=== PATIENT | male | born 1945 | race African-American/Black ===

== ENCOUNTER → 2017-04-01 | Outpatient (CLI) | payer MEDICARE, MEDICAID ==
[~2017-04-01] MED LIST: AMLO-324 PO; AMLO10TA80 PO; AMLO1TAB23 PO; ASPI-1159 PO; ATEN50TA PO; AZIL80TA PO; CELE400C PO; CODE118S2 PO; FLUT100D INH; LOSA100T14 PO; NITR0.4T SL
== END | disposition home or self-care (01) ==
LOC: RAD 10:14
PROVIDERS: ATTEND Podiatrist Foot & Ankle Surgery
DX: Z01.818 Encounter for other preprocedural examination (principal); M25.571 Pain in right ankle and joints of right foot
CPT/HCPCS: 73630

== ENCOUNTER 2017-04-29 11:21 | Day surgery (SDC) | payer MEDICARE, MEDICAID ==
[~2017-04-29] VITALS: Ht 176.5 cm; Wt 96.2 kg
[~2017-04-29 11:21] MED LIST changes: +AMLO-243 PO; -AMLO-324 PO
[2017-04-29] MEDS ORDERED: TRIAMCINOLONE ACETONIDE 40MG/ML 1ML VIAL ONE (12:37)
[2017-04-29] MEDS ORDERED: DEXAMETHASONE 4MG/ML 1ML VIAL ONE ×2 (12:37→14:40)
[2017-04-29] MEDS ORDERED: GENTAMICIN SULF 40MG/ML 2ML VIAL ONE (12:38)
[2017-04-29] MEDS ORDERED: BUPIVACAINE HCL/PF 0.5% (5MG/ML) 10ML ONE ×2 (12:38→13:16)
[2017-04-29] MEDS ORDERED: BACITRACIN ZINC 15GM TUBE TOP ONE (12:38)
[2017-04-29] MEDS ORDERED: LIDOCAINE HCL 1% 20ML VIAL (Pyxis) INJ ONE ×3 (12:39→14:04)
[2017-04-29] MEDS ORDERED: BACITRACIN 50,000 UNITS/VIAL ONE (12:39)
[2017-04-29] MEDS ORDERED: SODIUM CHLORIDE 0.9% 1,000 ML IV SCH (13:00)
[2017-04-29] MEDS ORDERED: MIDAZOLAM HCL 2 MG/2 ML VIAL ONE ×2 (14:02→14:25)
[2017-04-29] MEDS ORDERED: FENTANYL CITRATE/PF 50MCG/ML 2ML VIAL ONE ×2 (14:02→14:25)
[2017-04-29] MEDS ORDERED: PROPOFOL 200MG/20ML VIAL IV ONE (14:04)
[2017-04-29] MEDS ORDERED: VANCOMYCIN HCL 500 MG/VIAL ONE ×2 (14:19→14:20)
[2017-04-29] MEDS ORDERED: BUPIVACAINE HCL 0.5% (5MG/ML) 50ML ONE (14:27)
[2017-04-29] MEDS ORDERED: LABETALOL HCL 20MG/4ML CARPUJECT IV PRN (14:30)
[2017-04-29] MEDS ORDERED: ONDANSETRON HCL 4MG/2ML VIAL IV PRN (14:30)
[2017-04-29] MEDS ORDERED: MEPERIDINE HCL/PF 25MG/ML CPJ IV PRN (14:30)
[2017-04-29] MEDS ORDERED: HYDROMORPHONE HCL/PF 2MG/ML CPJ IV PRN (14:30)
[2017-04-29] MEDS ORDERED: ONDANSETRON HCL 4MG/2ML VIAL ONE (14:40)
[2017-04-29] MEDS ORDERED: SILVER SULFADIAZINE 1% CREAM 25GM TOP NR (14:45)
== END 2017-04-29 16:15 | disposition home or self-care (01) ==
LOC: OR 11:21 → EDSTATUS 13:30 → OR 16:15
PROVIDERS: ATTEND Podiatrist Foot & Ankle Surgery
DX: M21.621 Bunionette of right foot (principal); B07.8 Other viral warts; M79.89 Other specified soft tissue disorders; I25.2 Old myocardial infarction; I10 Essential (primary) hypertension; I25.10 Atherosclerotic heart disease of native coronary artery without angina pectoris; E78.4 Other hyperlipidemia; E78.00 Pure hypercholesterolemia, unspecified; Z87.891 Personal history of nicotine dependence; Z98.890 Other specified postprocedural states; Z88.0 Allergy status to penicillin; Z79.899 Other long term (current) drug therapy; Z79.82 Long term (current) use of aspirin
CPT/HCPCS: 28043; 28110; 88311; J1100; J1580; J2250; J2405; J3010; J3301; J3370; J3490; J7030; J2704

== ENCOUNTER 2017-11-09 08:56 | Emergency (ER) | payer MEDICARE, MEDICAID ==
[~2017-11-09] VITALS: Ht 175.3 cm; Wt 98.0 kg
[2017-11-09] MEDS ORDERED: ONDANSETRON HCL 4MG/2ML VIAL IV STA (10:21)
[2017-11-09] MEDS ORDERED: KETOROLAC 30MG/ML VIAL IV STA (10:21)
[2017-11-09] MEDS ORDERED: SODIUM CHLORIDE 0.9% 500 ML IV ONE (10:21)
[2017-11-09] MEDS ORDERED: MORPHINE SULFATE 4 MG/ML CPJ (NOT FOR IM USE) IV STA (10:21)
[2017-11-09] MEDS ORDERED: DEXAMETHASONE 10 MG/ML VIAL IV ONE (10:30)
[2017-11-09 11:57] LABS: BASOPHILS % 0.2 % (0.0-2.0); HEMOGLOBIN. 14.5 g/dL (14.0-18.0); LYMPHOCYTES % 38.8 % (20.0-50.0); MEAN CORPUSCULAR HEMOGLOBIN 29.3 pg (28.0-32.0); MEAN CORPUSCULAR VOLUME 84.9 fL (80.0-94.0); MEAN PLATELET VOLUME 10.2 fl (7.4-10.4); MONOCYTES % 11.8 % (2.0-8.0); NEUTROPHILS % 47.2 % (40.0-76.0); PLATELET 121 x1000/uL (130-400); RED BLOOD CELL COUNT 4.94 mill/uL (4.7-6.1); RED CELL DISTRIBUTION WIDTH 14.3 % (11.6-14.6)
[2017-11-09 11:58] LABS: CHLORIDE 110 mEq/L (98-107)
[2017-11-09 11:59] LABS: INR 1.1; PARTIAL THROMBOPLASTIN TIME 27.6 sec (23.4-31.0); PROTHROMBIN TIME 11.1 sec (9.4-11.6)
[2017-11-09 15:12] VITALS: BP 115/65
== END 2017-11-09 15:17 | disposition home or self-care (01) ==
LOC: ER 09:21
DX: M54.40 Lumbago with sciatica, unspecified side (principal); G89.29 Other chronic pain; I10 Essential (primary) hypertension; I25.10 Atherosclerotic heart disease of native coronary artery without angina pectoris; Z79.82 Long term (current) use of aspirin; Z87.891 Personal history of nicotine dependence; Z88.0 Allergy status to penicillin; Z96.649 Presence of unspecified artificial hip joint; Z98.890 Other specified postprocedural states
CPT/HCPCS: 36415; 72148; 80048; 84484; 85025; 85610; 85730; 96361; 96374; 96375; 99285; J1100; J1885; J2270; J2405; J7040

== ENCOUNTER 2018-05-05 09:46 | Emergency (ER) | payer MEDICARE, MEDICAID ==
[~2018-05-05] VITALS: Ht 180.3 cm; Wt 97.0 kg
[2018-05-05] MEDS ORDERED: HYDROCODONE/ACETAMINOPHEN 5/325MG TABLET PO ONE (10:15)
[2018-05-05 16:23] VITALS: BP 132/77
== END 2018-05-05 16:33 | disposition home or self-care (01) ==
LOC: ER 10:54
DX: M25.552 Pain in left hip (principal); W18.2XXA Fall in (into) shower or empty bathtub, initial encounter; Y93.89 Activity, other specified; Y92.091 Bathroom in other non-institutional residence as the place of occurrence of the external cause; I11.9 Hypertensive heart disease without heart failure; I25.2 Old myocardial infarction; Z79.899 Other long term (current) drug therapy; Z88.0 Allergy status to penicillin
CPT/HCPCS: 72192; 73502; 73700; 99284

== ENCOUNTER → 2020-02-01 | Outpatient (CLI) | payer MEDICARE, MEDICAID ==
[~2020-02-01] MED LIST changes: -ASPI-1159 PO; +ASPI-1497 PO; +ATOR40TA70 PO; -LOSA100T14 PO; +LOSA100T32 PO
== END | disposition home or self-care (01) ==
LOC: RAD 10:28
PROVIDERS: ATTEND Specialist
DX: M47.812 Spondylosis without myelopathy or radiculopathy, cervical region (principal); Z01.818 Encounter for other preprocedural examination
CPT/HCPCS: 71046

== ENCOUNTER 2020-02-08 05:24 | Inpatient (IN) | payer MEDICARE, MEDICAID ==
[~2020-02-08] VITALS: Ht 175.3 cm; Wt 105.7 kg
[2020-02-08] VITALS (73 sets, daily range): BP systolic 97–151; BP diastolic 49–87
[~2020-02-08 05:24] MED LIST changes: -AMLO-243 PO; -AMLO1TAB23 PO; -ATEN50TA PO; -AZIL80TA PO; -CELE400C PO; -CODE118S2 PO; -FLUT100D INH
[2020-02-08] MEDS ORDERED: LACTATED RINGERS 1,000 ML IV SCH (06:30)
[2020-02-08] MEDS ORDERED: BACITRACIN 50,000 UNITS/VIAL ONE (06:36)
[2020-02-08] MEDS ORDERED: LIDOCAINE HCL/EPINEPHRINE 1%-EPI 1:100,000 20 ML VIAL ONE (06:36)
[2020-02-08] MEDS ORDERED: THROMBIN (BOVINE) 5000 UNITS/VIAL TOP ONE (06:36)
[2020-02-08] MEDS ORDERED: FENTANYL CITRATE/PF 50MCG/ML 2ML VIAL ONE (07:03)
[2020-02-08] MEDS ORDERED: PROPOFOL 200MG/20ML VIAL IV ONE (07:03)
[2020-02-08] MEDS ORDERED: MIDAZOLAM HCL 2 MG/2 ML VIAL ONE (07:03)
[2020-02-08] MEDS ORDERED: LIDOCAINE HCL/PF 1% 10 MG/ML 5ML VIAL ONE (07:03)
[2020-02-08] MEDS ORDERED: ROCURONIUM BROMIDE 10MG/ML VIAL 5ML IV ONE ×2 (07:03→08:40)
[2020-02-08] MEDS ORDERED: ONDANSETRON HCL 4MG/2ML INJ ONE (07:04)
[2020-02-08] MEDS ORDERED: SUCCINYLCHOLINE CHLORIDE 200MG/10ML IV ONE (07:04)
[2020-02-08] MEDS ORDERED: METOCLOPRAMIDE HCL 10MG/2ML VIAL ONE (07:04)
[2020-02-08] MEDS ORDERED: CLINDAMYCIN 900 MG PREMIX 50 ML IV ONE (07:17)
[2020-02-08] MEDS: DEXT 5%/LACTATED RINGERS 1,000 ML IV SCH ×2 (09:15→17:50)
[2020-02-08] MEDS ORDERED: CLINDAMYCIN 600 MG in DEXTROSE 5% WATER 50 ML IV SCH (09:15)
[2020-02-08] MEDS ORDERED: NEOSTIGMINE METHYLSULFATE 1MG/ML 10 ML VIAL ONE (09:16)
[2020-02-08] MEDS ORDERED: GLYCOPYRROLATE 0.2 MG/ML 2ML VIAL ONE ×2 (09:16→09:17)
[2020-02-08] MEDS ORDERED: MEPERIDINE HCL/PF 25MG/ML CPJ IV PRN (09:45)
[2020-02-08] MEDS ORDERED: ONDANSETRON INJ IV PRN (10:15)
[2020-02-08] MEDS: HYDROMORPHONE HCL/PF 2MG/ML CPJ IV PRN ×2 (10:15→10:40)
[2020-02-08] MEDS ORDERED: DIPHENHYDRAMINE INJ IV PRN (10:15)
[2020-02-08] MEDS ORDERED: NALOXONE INJ IV PRN (10:15)
[2020-02-08] MEDS ORDERED: HYDROMORPHONE PCA 10MG/50ML IV PRN (10:15)
[2020-02-08] MEDS: NICARDIPINE 100 MG in SODIUM CHLORIDE 0.9% 60 ML IV PRN ×2 (10:57→17:47)
[2020-02-08] MEDS ORDERED: BENZONATATE 100MG CAPSULE PO PRN (11:45)
[2020-02-08] MEDS ORDERED: IPRATROPIUM/ALBUTEROL 0.5-3(2.5)MG/3ML NEB HHN PRN (11:45)
[2020-02-08] MEDS: MORPHINE SULFATE 4 MG/ML CPJ (NOT FOR IM USE) IV PRN ×2 (12:16→15:22)
[2020-02-08] MEDS: DEXAMETHASONE 4MG/ML 1ML VIAL IV SCH ×3 (13:52→23:34)
[2020-02-08] MEDS: CLINDAMYCIN 600MG PREMIX 50 ML IV SCH ×2 (13:54→21:16)
[2020-02-08] MEDS: NITROGLYCERIN OINT 1GM/INCH UDPKT TD SCH ×3 (15:21→23:33)
[2020-02-08] MEDS: ONDANSETRON HCL 4MG/2ML INJ IV PRN (23:34)
[2020-02-09] VITALS (105 sets, daily range): BP systolic 81–174; BP diastolic 22–101
[2020-02-09] MEDS: NITROGLYCERIN OINT 1GM/INCH UDPKT TD SCH ×6 (03:27→23:32)
[2020-02-09] MEDS: NICARDIPINE 100 MG in SODIUM CHLORIDE 0.9% 60 ML IV PRN (03:39)
[2020-02-09] MEDS: DEXAMETHASONE 4MG/ML 1ML VIAL IV SCH ×2 (06:02→11:52)
[2020-02-09] MEDS: CLINDAMYCIN 600MG PREMIX 50 ML IV SCH ×2 (06:02→14:27)
[2020-02-09] MEDS: DEXT 5%/LACTATED RINGERS 1,000 ML IV SCH ×2 (06:02→14:28)
[2020-02-09] MEDS: MORPHINE SULFATE 4 MG/ML CPJ (NOT FOR IM USE) IV PRN ×5 (07:18→23:39)
[2020-02-09 07:28] LABS: BASOPHILS % 0.1 % (0.0-2.0); HEMATOCRIT. 36.4 % (42.0-52.0); HEMOGLOBIN. 12.4 g/dL (14.0-18.0); MEAN CORPUSCULAR HEMOGLOBIN 28.5 pg (28.0-32.0); MEAN PLATELET VOLUME 11.1 fl (7.4-10.4); NEUTROPHILS % 84.9 % (40.0-76.0); PLATELET 102 x1000/uL (130-400); RED BLOOD CELL COUNT 4.33 mill/uL (4.7-6.1); RED CELL DISTRIBUTION WIDTH 14.8 % (11.6-14.6)
[2020-02-09] MEDS: MAGNESIUM GLUCONATE 500MG TABLET PO SCH (09:28)
[2020-02-09] MEDS ORDERED: AMLODIPINE 2.5MG TABLET PO SCH (12:45)
[2020-02-09] MEDS: HYDRALAZINE 20MG/ML VIAL IV PRN ×2 (13:17→23:33)
[2020-02-09] MEDS ORDERED: LOSARTAN POTASSIUM 25 MG TABLET PO SCH (15:45)
[2020-02-09] MEDS: HYDROCODONE/ACETAMINOPHEN 5/325MG TABLET PO PRN ×2 (15:50→22:39)
[2020-02-09] MEDS: AMLODIPINE 10MG TABLET PO SCH (17:53)
[2020-02-09] MEDS: GUAIFENESIN 600MG ER TABLET PO SCH (20:02)
[2020-02-09] MEDS: LOSARTAN POTASSIUM 50 MG TABLET PO SCH (20:02)
[2020-02-09] MEDS: ATORVASTATIN CALCIUM 10MG TABLET PO SCH (20:03)
[2020-02-10] VITALS (34 sets, daily range): BP systolic 71–158; BP diastolic 41–104
[2020-02-10] MEDS: DEXT 5%/LACTATED RINGERS 1,000 ML IV SCH ×2 (00:41→06:50)
[2020-02-10] MEDS: NITROGLYCERIN OINT 1GM/INCH UDPKT TD SCH ×5 (03:43→20:52)
[2020-02-10] MEDS: MORPHINE SULFATE 4 MG/ML CPJ (NOT FOR IM USE) IV PRN ×5 (04:52→20:53)
[2020-02-10 06:03] LABS: HEMATOCRIT. 36.3 % (42.0-52.0); HEMOGLOBIN. 12.5 g/dL (14.0-18.0); LYMPHOCYTES % 10.3 % (20.0-50.0); MEAN CORPUSCULAR HEMOGLOBIN 29.2 pg (28.0-32.0); MEAN CORPUSCULAR VOLUME 84.6 fL (80.0-94.0); MEAN PLATELET VOLUME 10.8 fl (7.4-10.4); MONOCYTES % 6.6 % (2.0-8.0); NEUTROPHILS % 83.1 % (40.0-76.0); PLATELET 95 x1000/uL (130-400); RED BLOOD CELL COUNT 4.29 mill/uL (4.7-6.1); RED CELL DISTRIBUTION WIDTH 14.9 % (11.6-14.6)
[2020-02-10] MEDS: HYDRALAZINE 20MG/ML VIAL IV PRN (06:08)
[2020-02-10 06:10] LABS: CHLORIDE 107 mEq/L (98-107)
[2020-02-10] MEDS: HYDROCODONE/ACETAMINOPHEN 5/325MG TABLET PO PRN ×3 (07:08→23:08)
[2020-02-10] MEDS: ONDANSETRON HCL 4MG/2ML INJ IV PRN (07:08)
[2020-02-10] MEDS: LOSARTAN POTASSIUM 50 MG TABLET PO SCH ×2 (08:00→20:52)
[2020-02-10] MEDS: AMLODIPINE 10MG TABLET PO SCH (08:00)
[2020-02-10] MEDS: MAGNESIUM GLUCONATE 500MG TABLET PO SCH (08:07)
[2020-02-10] MEDS: GUAIFENESIN 600MG ER TABLET PO SCH ×2 (08:07→21:10)
[2020-02-10] MEDS ORDERED: AMLODIPINE 2.5MG TABLET PO SCH (09:00)
[2020-02-10] MEDS ORDERED: FLUTICASONE PROPIONATE 50MCG/SPRAY BOTTLE BOTHNSTRLS SCH ×2 (11:00→17:00)
[2020-02-10] MEDS: DOCUSATE SODIUM 100MG CAPSULE PO SCH (17:00)
[2020-02-10] MEDS ORDERED: DOCUSATE SODIUM 100MG CAPSULE PO SCH (17:00)
[2020-02-10] MEDS: FLUTICASONE PROPIONATE 50MCG/SPRAY BOTTLE BOTHNSTRLS SCH (17:02)
[2020-02-10] MEDS: POLYETHYLENE GLYCOL 3350 (17GM) 1 DOSE PACK PO SCH (20:52)
[2020-02-10] MEDS: ATORVASTATIN CALCIUM 10MG TABLET PO SCH (20:52)
[2020-02-10] MEDS ORDERED: POLYETHYLENE GLYCOL 3350 (17GM) 1 DOSE PACK PO SCH (21:00)
[2020-02-11] VITALS: BP 142/74
[2020-02-11] MEDS: MORPHINE SULFATE 4 MG/ML CPJ (NOT FOR IM USE) IV PRN ×6 (01:01→22:10)
[2020-02-11] MEDS: NITROGLYCERIN OINT 1GM/INCH UDPKT TD SCH ×6 (01:01→20:32)
[2020-02-11 04:00] VITALS: BP 152/86
[2020-02-11] MEDS: DEXT 5%/LACTATED RINGERS 1,000 ML IV SCH (05:29)
[2020-02-11 05:40] LABS: CHLORIDE 106 mEq/L (98-107)
[2020-02-11 05:43] LABS: BASOPHILS % 0.2 % (0.0-2.0); EOSINOPHILS % 0.1 % (0.0-5.0); HEMATOCRIT. 34.7 % (42.0-52.0); HEMOGLOBIN. 11.9 g/dL (14.0-18.0); LYMPHOCYTES % 16.3 % (20.0-50.0); MEAN CORPUSCULAR HEMOGLOBIN 28.6 pg (28.0-32.0); MEAN CORPUSCULAR VOLUME 83.6 fL (80.0-94.0); MEAN PLATELET VOLUME 10.7 fl (7.4-10.4); MONOCYTES % 9.8 % (2.0-8.0); NEUTROPHILS % 73.6 % (40.0-76.0); PLATELET 97 x1000/uL (130-400); RED BLOOD CELL COUNT 4.15 mill/uL (4.7-6.1); RED CELL DISTRIBUTION WIDTH 14.9 % (11.6-14.6)
[2020-02-11] MEDS ORDERED: HYDRALAZINE 10 MG in SODIUM CHLORIDE 0.9% 49.5 ML IV PRN (05:45)
[2020-02-11 08:00] VITALS: BP 130/64
[2020-02-11] MEDS: LOSARTAN POTASSIUM 50 MG TABLET PO SCH ×2 (08:35→20:32)
[2020-02-11] MEDS: AMLODIPINE 10MG TABLET PO SCH (08:36)
[2020-02-11] MEDS: DOCUSATE SODIUM 100MG CAPSULE PO SCH ×2 (08:36→16:28)
[2020-02-11] MEDS: MAGNESIUM GLUCONATE 500MG TABLET PO SCH (08:36)
[2020-02-11] MEDS: GUAIFENESIN 600MG ER TABLET PO SCH ×2 (08:36→20:56)
[2020-02-11] MEDS: FLUTICASONE PROPIONATE 50MCG/SPRAY BOTTLE BOTHNSTRLS SCH ×2 (08:37→16:28)
[2020-02-11] MEDS ORDERED: HYDROCHLOROTHIAZIDE 12.5MG CAPSULE PO SCH (09:00)
[2020-02-11] MEDS: HYDROCODONE/ACETAMINOPHEN 5/325MG TABLET PO PRN ×2 (10:27→19:40)
[2020-02-11 11:39] VITALS: BP 135/79
[2020-02-11 16:00] VITALS: BP 122/68
[2020-02-11] MEDS ORDERED: LACTULOSE 20G/30ML UDC PO SCH (17:15)
[2020-02-11 20:00] VITALS: BP 145/75
[2020-02-11] MEDS: POLYETHYLENE GLYCOL 3350 (17GM) 1 DOSE PACK PO SCH (20:32)
[2020-02-11] MEDS: ATORVASTATIN CALCIUM 10MG TABLET PO SCH (20:32)
[2020-02-11] MEDS ORDERED: DOXAZOSIN MESYLATE 2MG TABLET PO PRN (21:00)
[2020-02-12] VITALS: BP 111/61
[2020-02-12] MEDS: NITROGLYCERIN OINT 1GM/INCH UDPKT TD SCH ×3 (00:25→08:28)
[2020-02-12 04:00] VITALS: BP 149/75
[2020-02-12] MEDS: MORPHINE SULFATE 4 MG/ML CPJ (NOT FOR IM USE) IV PRN (04:57)
[2020-02-12] MEDS: HYDROCODONE/ACETAMINOPHEN 5/325MG TABLET PO PRN (06:11)
[2020-02-12 06:49] LABS: BASOPHILS % 0.1 % (0.0-2.0); EOSINOPHILS % 2.2 % (0.0-5.0); HEMATOCRIT. 35.9 % (42.0-52.0); HEMOGLOBIN. 12.3 g/dL (14.0-18.0); LYMPHOCYTES % 29.8 % (20.0-50.0); MEAN CORPUSCULAR HEMOGLOBIN 28.7 pg (28.0-32.0); MEAN CORPUSCULAR VOLUME 83.6 fL (80.0-94.0); MEAN PLATELET VOLUME 11.2 fl (7.4-10.4); MONOCYTES % 10.7 % (2.0-8.0); NEUTROPHILS % 57.2 % (40.0-76.0); PLATELET 94 x1000/uL (130-400); RED CELL DISTRIBUTION WIDTH 14.7 % (11.6-14.6)
[2020-02-12 07:44] LABS: CHLORIDE 106 mEq/L (98-107)
[2020-02-12 08:00] VITALS: BP 124/73
[2020-02-12] MEDS: FLUTICASONE PROPIONATE 50MCG/SPRAY BOTTLE BOTHNSTRLS SCH (08:28)
[2020-02-12] MEDS: DOCUSATE SODIUM 100MG CAPSULE PO SCH (08:29)
[2020-02-12] MEDS: AMLODIPINE 10MG TABLET PO SCH (08:29)
[2020-02-12] MEDS: LOSARTAN POTASSIUM 50 MG TABLET PO SCH (08:29)
[2020-02-12] MEDS: GUAIFENESIN 600MG ER TABLET PO SCH (08:29)
[2020-02-12] MEDS: MAGNESIUM GLUCONATE 500MG TABLET PO SCH (08:29)
[2020-02-12] MEDS ORDERED: ASPIRIN 81MG TABLET PO SCH (09:00)
== END 2020-02-12 10:50 | disposition home or self-care (01) | DRG 471 ==
LOC: OR 05:24 → MICUNO 05:25 → 6EST 02-10 12:19
PROVIDERS: ADMIT Specialist; ATTEND Specialist
PROC: 0RG20A0 Fusion of 2 or more Cervical Vertebral Joints with Interbody Fusion Device, Anterior Approach, Anterior Column, Open Approach (ICD-10-PCS; principal; 2020-02-08)
PROC: 0RB30ZZ Excision of Cervical Vertebral Disc, Open Approach (ICD-10-PCS; 2020-02-08)
PROC: 00NW0ZZ Release Cervical Spinal Cord, Open Approach (ICD-10-PCS; 2020-02-08)
DX: M48.02 Spinal stenosis, cervical region (principal); G82.50 Quadriplegia, unspecified; M47.12 Other spondylosis with myelopathy, cervical region; G95.20 Unspecified cord compression; N17.9 Acute kidney failure, unspecified; E83.42 Hypomagnesemia; E11.51 Type 2 diabetes mellitus with diabetic peripheral angiopathy without gangrene; D69.6 Thrombocytopenia, unspecified; D64.9 Anemia, unspecified; E11.22 Type 2 diabetes mellitus with diabetic chronic kidney disease; N18.9 Chronic kidney disease, unspecified; R26.89 Other abnormalities of gait and mobility; M47.22 Other spondylosis with radiculopathy, cervical region; E78.5 Hyperlipidemia, unspecified; G89.4 Chronic pain syndrome; J31.0 Chronic rhinitis; R13.10 Dysphagia, unspecified; R26.9 Unspecified abnormalities of gait and mobility; I12.9 Hypertensive chronic kidney disease with stage 1 through stage 4 chronic kidney disease, or unspecified chronic kidney disease; Z96.642 Presence of left artificial hip joint; I25.10 Atherosclerotic heart disease of native coronary artery without angina pectoris; I25.2 Old myocardial infarction; Z79.82 Long term (current) use of aspirin; Z82.49 Family history of ischemic heart disease and other diseases of the circulatory system; Z86.79 Personal history of other diseases of the circulatory system; Z87.891 Personal history of nicotine dependence; Z88.0 Allergy status to penicillin; Z95.5 Presence of coronary angioplasty implant and graft; Z03.818 Encounter for observation for suspected exposure to other biological agents ruled out
CPT/HCPCS: 36415; 72040; 72141; 76000; 80048; 80061; 83735; 85025; 86850; 86870; 86900; 88304; 88311; 92610; 93005; 95925; 95926; 95928; 95929; 95940; 97110; 97116; 97162; 97166; 97530; 97535; C1713; J0330; J0360; J1100; J1170; J2250; J2270; J2405; J2704; J2710; J2765; J3010; J3490; J7050; J7121; L0172; C9803-CS; U0003-CS

== ENCOUNTER 2021-05-10 10:35 | Emergency (ER) | payer MEDICARE, MEDICAID ==
[~2021-05-10] VITALS: Ht 175.3 cm; Wt 98.0 kg
[2021-05-10 11:49] LABS: HEMATOCRIT. 44.4 % (42.0-52.0); MEAN CORPUSCULAR HEMOGLOBIN 28.5 pg (28.0-32.0); MEAN CORPUSCULAR VOLUME 84.7 fL (80.0-94.0); MEAN PLATELET VOLUME 10.5 fl (7.4-10.4); PLATELET 75 x1000/uL (130-400); RED BLOOD CELL COUNT 5.24 mill/uL (4.7-6.1); RED CELL DISTRIBUTION WIDTH 15.6 % (11.6-14.6)
[2021-05-10 11:54] LABS: CHLORIDE 109 mEq/L (98-107)
[2021-05-10] MEDS ORDERED: FURO-152 MT (12:10)
[2021-05-10 12:29] LABS: PLATELET ESTIMATE DECREASED
[2021-05-10 13:37] VITALS: BP 147/71
== END 2021-05-10 13:37 | disposition home or self-care (01) ==
LOC: ER 10:35
DX: R60.0 Localized edema (principal); D69.6 Thrombocytopenia, unspecified; I11.0 Hypertensive heart disease with heart failure; I50.9 Heart failure, unspecified; I25.10 Atherosclerotic heart disease of native coronary artery without angina pectoris; I25.2 Old myocardial infarction; Z88.0 Allergy status to penicillin; Z79.899 Other long term (current) drug therapy; Z96.649 Presence of unspecified artificial hip joint
CPT/HCPCS: 36415; 80053; 83880; 85025; 93005; 99284

== ENCOUNTER 2024-03-31 14:16 | Emergency (ER) | payer MEDICARE, MEDICAID ==
[~2024-03-31] VITALS: Ht 175.3 cm; Wt 92.0 kg
[~2024-03-31 14:16] MED LIST changes: +FURO-152 MT; -LOSA100T32 PO; +LOSA100T33 PO
[2024-03-31 14:23] VITALS: O2SAT 98
[2024-03-31] MEDS: HYDROCODONE/ACETAMINOPHEN 5/325MG TABLET PO ONE (16:56)
[2024-03-31] MEDS ORDERED: OXYC-100 MT (17:13)
[2024-03-31 17:26] VITALS: BP 145/72; PULSE 56; RESP 18; TEMP 37.05852; O2SAT 99
[2024-03-31] MEDS ORDERED: IBUP-2029 MT ×2 (17:30→21:13)
== END 2024-03-31 17:52 | disposition home or self-care (01) ==
LOC: ER 14:16
DX: M25.552 Pain in left hip (principal); I25.2 Old myocardial infarction; I10 Essential (primary) hypertension; E78.00 Pure hypercholesterolemia, unspecified; Z88.0 Allergy status to penicillin; Z88.6 Allergy status to analgesic agent; Z79.899 Other long term (current) drug therapy
CPT/HCPCS: 73502; 99283